=== PATIENT | male | born 1950 | race Caucasian/White ===

== ENCOUNTER 2020-09-29 16:22 | Emergency (ER) | payer SELFPAY ==
[2020-09-29 16:30] VITALS: BP 158/91; PULSE 91; RESP 18; TEMP 36.2; O2SAT 97
--- NOTE | 2020-09-29 16:31 | ED.LOWEXIN ---
HPI - Extremity Injury (Lower) General Chief Complaint: Extremity Injury, Lower Stated Complaint: Rt foot Time Seen by Provider: 09/29/20 16:31 Source: patient and RN notes reviewed History of Present Illness HPI Narrative: Patient is a 70-year-old male who presents the urgent care with complaints of right great toe injury. Patient states that he kicked a cabinet door last and hit the toenail fairly hard. Patient states that he believes it is about to fall off. States that it has been draining and he has been using bacitracin and other aloe vera type ointments to the toe. Patient states that he felt slightly feverish with body aches a couple days ago and started taking an old prescription of amoxicillin. Patient states his last dose of amoxicillin was approximately 8 hours ago. Patient denies of any nausea or vomiting. No other acute complaints. No acute distress noted. Patient aware of the plan of care. Some parts of this dictation were generated by voice recognition software and may contain typographical and/or grammatical inaccuracies. Related Data Allergies Allergy/AdvReac Type Severity Reaction Status Date / Time No Known Allergies Allergy Verified 09/29/20 16:47 Review of Systems Review of Systems: Narrative: CONSTITUTIONAL: Denies fever, chills, or sweats. EYES: Denies visual changes, redness, or discharge. ENT: Denies rhinorrhea, congestion, sore throat, or otalgia. CARDIOVASCULAR: Denies chest pain, palpitations, or edema. RESPIRATORY: Denies cough or dyspnea. GASTROINTESTINAL: Denies abdominal pain, nausea, vomiting, or diarrhea. GENITOURINARY: Denies dysuria or hematuria. SKIN: Reports of right great toenail injury MUSCULOSKELETAL: Reports of right great toe pain and swelling NEUROLOGIC: Denies headache, numbness, or weakness. All other systems reviewed are negative, except as documented in HPI. PMFSH Comments At the time of my signature, I reviewed and agree with the nursing past medical, surgical, social, and family history. There is no relevant family history pertinent to the patient complaint. Exam Narrative: Exam Narrative: GENERAL: This is a well-nourished, well-developed patient, in no apparent distress. HEAD: normocephalic, atraumatic. EYES: PERRL. Sclera clear/white. Vision is grossly intact. EARS: External ears normal NOSE: External nose normal with no obvious nasal discharge, nares without redness, no rhinorrhea. THROAT: Mucous membranes moist NECK: Neck supple CARDIOVASCULAR: Regular rate and rhythm without murmurs, gallops, or rubs. RESPIRATORY: Clear to auscultation. Breath sounds equal bilaterally. No wheezes, rales, or rhonchi. SKIN: Injury to right great toenail with surrounding erythema, mild edema and white to yellow serosanguineous fluid. Abrasion to the distal tip of the right great toe. NEURO: awake, alert, and oriented to person, place and time. There were no obvious focal neurologic abnormalities. EXTREMITIES: Positive strong right pedal pulse with capillary refill less than 2 seconds. Mild 1+ pitting edema to right lower extremity. Range of motion to right lower extremity within normal limits. Course Vital Signs Vital signs: Vital Signs Temperature 97.1 F L 09/29/20 16:30 Pulse Rate 91 09/29/20 16:30 Respiratory Rate 18 09/29/20 16:30 Blood Pressure 158/91 H 09/29/20 16:30 Pulse Oximetry 97 09/29/20 16:30 Temperature 97.1 F L 09/29/20 16:30 Pulse Rate 91 09/29/20 16:30 Respiratory Rate 18 09/29/20 16:30 Blood Pressure 158/91 H 09/29/20 16:30 Pulse Oximetry 97 09/29/20 16:30 Reviewed-patient is informed that they may have pre-hypertension or hypertension based on a blood pressure reading in the department. I recommend the patient call the primary care provider listed on their discharge instructions or a physician of their choice this week to arrange follow-up for further evaluation of possible pre-hypertension or hypertension. MDM - Extre
== END 2020-09-29 16:50 | disposition home or self-care (01) ==
PROVIDERS: Emergency Provider Nurse Practitioner Family
DX: S99.921A Unspecified injury of right foot, initial encounter (principal); W22.8XXA Striking against or struck by other objects, initial encounter; L03.031 Cellulitis of right toe; G62.9 Polyneuropathy, unspecified
CPT/HCPCS: 99213; G0463